=== PATIENT | male | born 1935 | race Caucasian/White ===

== ENCOUNTER 2017-02-20 13:10 | Inpatient (IN) ==
[2017-02-20] MEDS ORDERED: GLUCAGON 1 MG VIAL IM PRN (13:14)
[2017-02-20] MEDS ORDERED: ONDANSETRON 4 MG/2 ML VIAL IV PRN (13:14)
[2017-02-20] MEDS ORDERED: DEXTROSE 50% 25 GM/50 ML SYRINGE IV PRN (13:14)
[2017-02-20] MEDS ORDERED: ACETAMINOPHEN 325 MG TABLET PO PRN (13:14)
--- NOTE | 2017-02-20 13:38 | Family Practice History&Phys ---
Assessment and Plan (1) severe weakness and failure to thrive Status: Acute Assessment and plan: We'll admit and obtain additional studies. Patient has multiple risk factors and need to rule out underlying disease process. We'll hydrate and assess nutritional care (2) type 2 diabetes mellitus Status: Chronic Assessment and plan: We'll start on sliding scale and resume home diabetic medication (3) status post coronary bypass graft Status: Chronic Assessment and plan: Stable at present. We will obtain cardiology evaluation if needed (4) status post aortic valve replacement Status: Chronic Assessment and plan: Stable at present. (5) diabetic peripheral neuropathy Status: Chronic Assessment and plan: Pain moderately controlled on Neurontin and occasional Ultram (6) anxiety and depression Status: Acute Assessment and plan: We'll resume his Lexapro and start on antianxiety medication (7) hypertension Status: Chronic Assessment and plan: Stable on present medication (8) hyperlipidemia Status: Chronic Assessment and plan: Stable with present medication (9) Obstructive sleep apnea Status: Chronic Assessment and plan: Stable on present treatment plan (10) post repair of aortic stenosis Status: Chronic Assessment and plan: Stable at present History of Present Illness Chief complaint: progressive weakness and failure to thrive History of present illness: Mr. Mix is a 81 year old male Patient is an 81-year-old white male well known to me who has had a progressive decline over the last 2 weeks. Patient has no energy, no appetite, weight loss with intermittent dyspnea.Patient states she doesn't feel like he can carry out any activity. States he becomes extremely weak with even minimal activity. He was seen in the emergency room at [facility] on 02/18/2017. He was complaining of some burning type chest pain and severe weakness. They were unable to find any specific etiology and treat him more as a viral type illness. Family states that there is a total change in his outlook and level of activity over the last 7-10 days. Patient states that he is having intermittent episodes of dyspnea. The symptoms will last for several minutes and then resolve. Family states that he is not sleeping. Has difficulty getting to sleep with frequent awakening. States he feels exhausted. Patient relates that if something is not done and doesn't feel that he will make it. Has a history of coronary artery disease with previous coronary artery bypass graft and aortic valve replacement. He denies any chest pain or dyspnea at the time of my evaluation. Patient lives over an hour and a half away from the hospital. In view of his medical history and degree of symptoms will admit for close observation and therapy. Home Medications Medication Instructions Recorded Confirmed Type Aspirin [Ecotrin] 81 mg PO BEDTIME 07/16/15 06/05/16 History Gemfibrozil 600 mg PO BID 07/16/15 06/05/16 History Glimepiride [Amaryl] 4 mg PO BID W/MEALS 07/16/15 06/05/16 History Isosorbide Mononitrate [Isosorbide 30 mg PO DAILY 07/16/15 06/05/16 History Mononitrate ER] Metoprolol Tartrate 50 mg PO BID 07/16/15 06/05/16 History Minoxidil 5 mg PO BID 07/16/15 06/05/16 History Omeprazole 20 mg PO BEDTIME 07/16/15 06/05/16 History Pioglitazone [Actos] 15 mg PO DAILY 07/16/15 06/05/16 History amLODIPine [Norvasc] 10 mg PO BEDTIME 07/16/15 06/05/16 History cloNIDine TAB [Catapres Tab] 0.3 mg PO BID 07/16/15 06/05/16 History metFORMIN [Glucophage] 250 mg PO BID W/MEALS 07/16/15 06/05/16 History Furosemide Tab [Lasix Tab] 40 mg PO 0900,1400 10/24/15 06/05/16 History Spironolactone [Aldactone] 50 mg PO BID #60 tablet 10/28/15 06/05/16 Rx Meloxicam [Mobic] 15 mg PO DAILY 01/29/16 06/05/16 History Theophylline ER Cap (24 Hr) 300 mg PO DAILY #10 capsule 04/02/16 06/05/16 Rx [Miguel Angel-24] predniSONE TAB [PredniSONE] 20 mg PO DAILY #15 tablet 04/02/16 06/05/16 Rx Furosemide Tab [Lasix Tab] 20 mg PO BID DIURETIC #14 tablet 06/05/16 Rx Allergies Allergy/AdvReac Type Severity Reaction Status Date / Time Minocycline Allergy Severe RASH Verified 04/01/16 23:42 sulfamethoxazole Allergy Severe RASH Verified 04/01/16 23:42 [From Bactrim] trimethoprim [From Bactrim] Allergy Severe RASH Verified 04/01/16 23:42 celecoxib [From Celebrex] Allergy Mild ITCHING Verified 04/01/16 23:42 cefuroxime [From Ceftin] Allergy Unknown Unknown/Unable Verified 04/01/16 23:42 to obtain lisinopril Allergy Unknown Unknown/Unable Verified 04/01/16 23:42 to obtain SARITHA Inhibitors AdvReac Mild Swelling Verified 04/01/16 23:42 of Lip/Tongue/Throat amlodipine [From Lotrel] AdvReac Mild Swelling Verified 04/01/16 23:42 of Lip/Tongue/Throat benazepril [From Lotrel] AdvReac Mild Swelling Verified 04/01/16 23:42 of Lip/Tongue/Throat losartan [From Cozaar] AdvReac Mild Swelling Verified 04/01/16 23:42 of Lip/Tongue/Throat Medical,Surgical,& Family Hx - Medical History Cardio: History of: CHF, Hypertension, Valvular Heart Disease (aortic valve replacement), Cardiovascular Problems (CABG) Neurology: History of: Cerebral Hemorrhage (July 2012) No history of: Seizures HEENT: History of: Ear Problem (hearing aids), Eye Problem (glasses), Dental Problems (top and bottom partials) Endocrine: History of: Diabetes Mellitus (NIDDM), Dyslipidemia Respiratory: History of: Bronchitis (2014), Obstructive Sleep Apnea, Pneumonia ( april 2015) Gastrointestinal: History of: GERD Musculoskeletal: History of: Back/Neck Problems (back surgery years ago.) - Surgical History Cardiac Surgeries: Sugical HX of: Cardiac Catheterization (07-16-16, stents greater than 5 yrs), Cardiac Surgery (cabg 2003) Thoracic Surgeries: Patient denies;: Organ Transplant Neurologic Surgeries: Surgical HX of: Cerebral Hemorrhage (July 2012) Patient denies: Neurologic Surgery Orthopedic Surgeries: Surgical HX of;: Spinal Surgery (patient has had 2 lumbar disc surgeries in the past) - Family History Family History: Reports;: Family Diabetes (mother, brothers, sister), Family Heart Disease (mother, father, nrothers, sisters), Family Hypertension (mother , father, brothers, siter), Family Stroke (tia, brother) - Social History Smoking Status: Former smoker Have you smoked in the last 12 months: No Frequency of Alcohol Use: None Type of Drug Use: None Marital Status: Lives With:: Spouse Functional capacity: independent ambulation Exam - Constitutional General appearance: mild distress - Head Head exam: Present: normal inspection - Eye Pupils: Present: JIN - ENT ENT exam: Present: normal exam - Neck Neck exam: Present: normal inspection - Respiratory Respiratory exam: Present: clear to auscultation bilaterally - Cardiovascular Cardiovascular exam: Present: regular rate and rhythm, systolic murmur - GI/Abdominal GI/Abdominal exam: Present: normal bowel sounds, soft - Extremities Exam Extremities exam: Present: normal inspection - Back Exam Back exam: Present: normal inspection - Neurological Exam Neurological exam: Present: alert, oriented X3, normal gait - Psychiatric Psychiatric exam: Present: depressed, flat affect - Skin Skin exam: Present: normal color
[2017-02-20 14:45] LABS: Basophils % 0.5 % (0.0-0.8); Eosinophils % 0.3 % (0.00-10.9); Hematocrit 35.9 VOL% (42.0-52.0); Hemoglobin 12.3 GM/DL (14.0-18.0); Immature Granulocytes % 0.9 %; Immature Granulocytes Absolute 0.06 #; Lymphocytes # 0.9 10*3/uL (1.4-4.0); Lymphocytes % 13.5 % (21.2-54.2); Mean Corpuscular HGB Conc 34.3 GM/DL (32-36); Mean Corpuscular Hemoglobin 28 PG (27-34); Mean Corpuscular Volume 82.5 FL (87-102); Mean Platelet Volume 10.8 FL (9.6-12.0); Monocytes # 0.7 10*3/uL (0.11-0.8); Monocytes % 10.6 % (1.7-12.7); Neutrophils # 4.7 10*3/uL (1.4-7.4); Neutrophils % 74.2 % (38.7-73.9); Platelet Count 237 T/CUMM (130-400); Red Blood Count 4.35 MC/CUMM (3.8-5.5); White Blood Count 6.4 T/CUMM (4-12)
[2017-02-20 15:05] LABS: Albumin 4.1 G/DL (3.4-5.0); Bilirubin,Total 0.4 MG/DL (0.2-1.0); Calcium 9.4 MG/DL (8.5-10.1); Potassium 3.5 MMOL/L (3.5-5.1); Total Protein 7.6 G/DL (6.4-8.3)
[2017-02-20 15:08] LABS: Ferritin 18.5 ng/ml (26-388); Free T4 (Free Thyroxine) 1.3 NG/DL (0.76-1.46)
[2017-02-20] MEDS: SODIUM CHLORIDE 0.45% 1,000 ML IV SCH (15:14)
[2017-02-20] MEDS: clonazePAM 0.5 MG TABLET PO SCH ×2 (15:15→20:55)
[2017-02-20 15:57] LABS: Apearance,Urine CLEAR (Clear); Bilirubin,Urine Negative (Negative); Blood, Urine Negative (Negative); Glucose,Urine (UA) Negative (Negative); Ketones,Urine Negative (Negative); Nitrite,Urine Negative (Negative); Protein,Urine Negative; RBC,Urine 1 /HPF (0-4); Urine Color Straw (Yellow); Urine Specific Gravity 1.008 (1.001-1.035); Urine Urobilinogen < 2.0 EU/DL (0.2-1.0); WBC,Urine 2 /HPF (0-6)
[2017-02-20] MEDS: INSULIN REGULAR 100 UNIT/ML SUBCUT SCH ×2 (15:59→22:44)
--- NOTE | 2017-02-20 16:12 | EKG Report ---
Stationary ECG Study [facility] Test Date: 02/20/2017 4:11:48 PM Pat Name: EMILE PEREZ Department: Room: 242 Gender: M Brinell Tester: : 1935 Requested by: Adalberto Robledo Order Number: [id number] Reading MD: MANUELA NEGRETE Intervals Williams Rate: 55 P: 66 MD: 172 QRS: 69 QRSD: 98 T: 182 QT: 460 QTc: 448 Interpretive Statements SINUS RHYTHM ST DEVIATION AND MODERATE T-WAVE ABNORMALITY, CONSIDER ANTEROLATERAL ISCHEMIA Electronically Signed On 02-24-17 06:43:48 CDT by MANUELA NEGRETE [email or web address]
--- NOTE | 2017-02-20 16:26 | XRay Report ---
2 view chest 02/20/2017 257 PM Indication: Shortness of breath Comparison: June 05, 2016 Findings: Cardiomediastinal contours are stable with underlying cardiomegaly and evidence of prior valve replacement. Mediastinal wires at midline. Lungs are clear bilaterally. . No acute osseous abnormalities. Visualized upper abdomen demonstrates no acute pathology. Impression: No acute cardiopulmonary findings PROCEDURE INTERPRETED AT [facility] Final Report Signed by: Hu Nj
[2017-02-20] MEDS: metFORMIN 500 MG TABLET PO SCH (18:34)
[2017-02-20] MEDS: GLIMEPIRIDE 4 MG TABLET PO SCH (18:34)
[2017-02-20] MEDS: FUROSEMIDE 80 MG TABLET PO SCH (18:34)
[2017-02-20] MEDS: METOPROLOL TARTRATE 50 MG TABLET PO SCH (20:55)
[2017-02-20] MEDS: amLODIPine 10 MG TABLET PO SCH (20:55)
[2017-02-20] MEDS: MINOXIDIL 2.5 MG TABLET PO SCH (20:55)
[2017-02-20] MEDS: ENOXAPARIN 40 MG/0.4 ML SYRINGE SUBCUT SCH (20:55)
[2017-02-20] MEDS: ROSUVASTATIN 20 MG TABLET PO SCH (20:55)
[2017-02-20] MEDS: ASPIRIN EC 81 MG TABLET PO SCH (20:55)
[2017-02-20] MEDS: GEMFIBROZIL 600 MG TABLET PO SCH (20:55)
[2017-02-20] MEDS: ESCITALOPRAM 10 MG TABLET PO SCH (20:56)
[2017-02-20] MEDS: DOCUSATE SODIUM 100 MG CAPSULE PO SCH (21:01)
[2017-02-21] MEDS: SODIUM CHLORIDE 0.45% 1,000 ML IV SCH ×3 (00:09→23:09)
[2017-02-21 06:54] LABS: Calcium 8.6 MG/DL (8.5-10.1); Osmolality,Calculated 281.4 MOS/KG (273-304); Potassium 3.6 MMOL/L (3.5-5.1); Risk Ratio 2.58; VLDL CHOLESTEROL 22.8 MG/DL
--- NOTE | 2017-02-21 07:52 | Family Practice Progress Note ---
Family Practice - PN: Subj Interval history: 02/21/17 -patient states he feels some better this a.m. He developed nausea early this a.m. States she has been having nausea daily over the last week. Not related to any medication or food. Not associated with any pain. Grandsons states that it awoke him from his sleep early this a.m. and lasted for about 2 hours. Nausea was relieved with medication. Patient states she feels better at present. Patient is not certain is whether the nausea is only in a.m. or is been at other times during the day. Family will monitor this help me better define the etiology of his nausea. It is just at night is probably related to reflux or gastritis. Will modify his protein pump inhibitors elevate the head of his bed. If symptoms persist will obtain a GI consult. His lab studies are stable. Chest x-ray is stable. He actually looks stronger and more alert this a.m. I have encouraged family to have patient sit in chair and ambulate as much as possible. We will continue IV hydration and evaluation. This is possibly a anxiety depression type syndrome but is most likely multifactorial in nature. I am not doing any other cardiac or extensive workup since the patient is improving and studies have been stable. Hopefully will rapidly improve Exam (Progress Note) - Constitutional Vitals: Period Temp Pulse Resp BP Sys/Stack Pulse Ox Last 24 Hr 97.1 F-98.6 F 49-61 16-22 112-181/55-79 97-100 Results - Labs CBC & BMP: 02/20/17 14:29 02/21/17 06:00 Assessment and Plan (1) severe weakness and failure to thrive Status: Acute Assessment and plan: We'll admit and obtain additional studies. Patient has multiple risk factors and need to rule out underlying disease process. We'll hydrate and assess nutritional care Current Visit: Yes (2) type 2 diabetes mellitus Status: Chronic Assessment and plan: We'll start on sliding scale and resume home diabetic medication Current Visit: Yes (3) status post coronary bypass graft Status: Chronic Assessment and plan: Stable at present. We will obtain cardiology evaluation if needed Current Visit: Yes (4) status post aortic valve replacement Status: Chronic Assessment and plan: Stable at present. Current Visit: Yes (5) diabetic peripheral neuropathy Status: Chronic Assessment and plan: Pain moderately controlled on Neurontin and occasional Ultram Current Visit: Yes (6) anxiety and depression Status: Acute Assessment and plan: We'll resume his Lexapro and start on antianxiety medication Current Visit: Yes (7) hypertension Status: Chronic Assessment and plan: Stable on present medication Current Visit: Yes (8) hyperlipidemia Status: Chronic Assessment and plan: Stable with present medication Current Visit: Yes (9) Obstructive sleep apnea Status: Chronic Assessment and plan: Stable on present treatment plan Current Visit: No (10) post repair of aortic stenosis Status: Chronic Assessment and plan: Stable at present Current Visit: No
[2017-02-21] MEDS: GEMFIBROZIL 600 MG TABLET PO SCH ×2 (08:46→20:36)
[2017-02-21] MEDS: ISOSORBIDE MONONITRATE 30 MG TABLET PO SCH (08:46)
[2017-02-21] MEDS: FUROSEMIDE 80 MG TABLET PO SCH ×2 (08:49→16:30)
[2017-02-21] MEDS: GLIMEPIRIDE 4 MG TABLET PO SCH ×2 (08:50→17:02)
[2017-02-21] MEDS: PIOGLITAZONE 15 MG TABLET PO SCH (08:50)
[2017-02-21] MEDS: clonazePAM 0.5 MG TABLET PO SCH ×3 (08:50→20:36)
[2017-02-21] MEDS: POTASSIUM CHLORIDE 10 MEQ TABLET PO SCH (08:50)
[2017-02-21] MEDS: PANTOPRAZOLE 40 MG TABLET PO SCH ×2 (08:51→20:36)
[2017-02-21] MEDS: metFORMIN 500 MG TABLET PO SCH ×2 (08:51→17:02)
[2017-02-21] MEDS: DOCUSATE SODIUM 100 MG CAPSULE PO SCH ×2 (08:52→20:36)
[2017-02-21] MEDS: METOPROLOL TARTRATE 50 MG TABLET PO SCH ×2 (08:52→20:38)
[2017-02-21] MEDS: MINOXIDIL 2.5 MG TABLET PO SCH ×2 (08:52→20:35)
[2017-02-21] MEDS: INSULIN REGULAR 100 UNIT/ML SUBCUT SCH ×4 (08:53→20:38)
[2017-02-21] MEDS ORDERED: ESCITALOPRAM 10 MG TABLET PO SCH (09:00)
[2017-02-21] MEDS ORDERED: PANTOPRAZOLE 40 MG TABLET PO SCH (09:00)
[2017-02-21] MEDS: ROSUVASTATIN 20 MG TABLET PO SCH (20:35)
[2017-02-21] MEDS: ENOXAPARIN 40 MG/0.4 ML SYRINGE SUBCUT SCH (20:36)
[2017-02-21] MEDS: ASPIRIN EC 81 MG TABLET PO SCH (20:36)
[2017-02-21] MEDS: ESCITALOPRAM 10 MG TABLET PO SCH (20:36)
[2017-02-21] MEDS: amLODIPine 10 MG TABLET PO SCH (20:36)
[2017-02-22 06:09] LABS: Basophils % 0.5 % (0.0-0.8); Eosinophils # 0.2 10*3/uL (0.0-0.87); Eosinophils % 2.6 % (0.00-10.9); Hematocrit 32.5 VOL% (42.0-52.0); Hemoglobin 10.9 GM/DL (14.0-18.0); Immature Granulocytes % 1.1 %; Immature Granulocytes Absolute 0.07 #; Lymphocytes # 1.2 10*3/uL (1.4-4.0); Lymphocytes % 18.1 % (21.2-54.2); Mean Corpuscular HGB Conc 33.5 GM/DL (32-36); Mean Corpuscular Hemoglobin 28 PG (27-34); Mean Corpuscular Volume 83.5 FL (87-102); Mean Platelet Volume 10.8 FL (9.6-12.0); Monocytes # 0.9 10*3/uL (0.11-0.8); Monocytes % 13.1 % (1.7-12.7); Neutrophils # 4.2 10*3/uL (1.4-7.4); Neutrophils % 64.6 % (38.7-73.9); Platelet Count 209 T/CUMM (130-400); Red Blood Count 3.89 MC/CUMM (3.8-5.5); Red Cell Distribution Width 14.1 % (9.3-17.3); White Blood Count 6.6 T/CUMM (4-12)
[2017-02-22 06:34] LABS: Magnesium 2.3 MG/DL (1.8-2.4); Osmolality,Calculated 286.3 MOS/KG (273-304); Potassium 3.7 MMOL/L (3.5-5.1)
[2017-02-22 07:34] LABS: Sedimentation Rate-Westergren 55 MM/HR (0-20)
--- NOTE | 2017-02-22 08:20 | Family Practice Progress Note ---
Family Practice - PN: Subj Interval history: 02/21/17 -patient states he feels some better this a.m. He developed nausea early this a.m. States she has been having nausea daily over the last week. Not related to any medication or food. Not associated with any pain. Grandsons states that it awoke him from his sleep early this a.m. and lasted for about 2 hours. Nausea was relieved with medication. Patient states she feels better at present. Patient is not certain is whether the nausea is only in a.m. or is been at other times during the day. Family will monitor this help me better define the etiology of his nausea. It is just at night is probably related to reflux or gastritis. Will modify his protein pump inhibitors elevate the head of his bed. If symptoms persist will obtain a GI consult. His lab studies are stable. Chest x-ray is stable. He actually looks stronger and more alert this a.m. I have encouraged family to have patient sit in chair and ambulate as much as possible. We will continue IV hydration and evaluation. This is possibly a anxiety depression type syndrome but is most likely multifactorial in nature. I am not doing any other cardiac or extensive workup since the patient is improving and studies have been stable. Hopefully will rapidly improve 02/22/17 -patient rested well during the night. He has not had any further nausea. Daughter states that he was much improved last p.m. He ambulated in the room and sat up most of the afternoon. She feels appetite has improved. Reviewed lab and x-ray studies. Will have patient get up and ambulate. If improved will consider discharge later today Exam (Progress Note) - Constitutional Vitals: Period Temp Pulse Resp BP Sys/Stack Pulse Ox Last 24 Hr 97.2 F-98.3 F 53-92 18-26 113-136/52-72 93-98 Results - Labs CBC & BMP: 02/22/17 05:22 02/22/17 05:22 Assessment and Plan (1) severe weakness and failure to thrive Status: Acute Assessment and plan: We'll admit and obtain additional studies. Patient has multiple risk factors and need to rule out underlying disease process. We'll hydrate and assess nutritional care Current Visit: Yes (2) type 2 diabetes mellitus Status: Chronic Assessment and plan: We'll start on sliding scale and resume home diabetic medication Current Visit: Yes (3) status post coronary bypass graft Status: Chronic Assessment and plan: Stable at present. We will obtain cardiology evaluation if needed Current Visit: Yes (4) status post aortic valve replacement Status: Chronic Assessment and plan: Stable at present. Current Visit: Yes (5) diabetic peripheral neuropathy Status: Chronic Assessment and plan: Pain moderately controlled on Neurontin and occasional Ultram Current Visit: Yes (6) anxiety and depression Status: Acute Assessment and plan: We'll resume his Lexapro and start on antianxiety medication Current Visit: Yes (7) hypertension Status: Chronic Assessment and plan: Stable on present medication Current Visit: Yes (8) hyperlipidemia Status: Chronic Assessment and plan: Stable with present medication Current Visit: Yes (9) Obstructive sleep apnea Status: Chronic Assessment and plan: Stable on present treatment plan Current Visit: No (10) post repair of aortic stenosis Status: Chronic Assessment and plan: Stable at present Current Visit: No
[2017-02-22] MEDS: GLIMEPIRIDE 4 MG TABLET PO SCH (08:29)
[2017-02-22 08:30] VITALS: BP 141/72
[2017-02-22] MEDS: metFORMIN 500 MG TABLET PO SCH (08:30)
[2017-02-22] MEDS: FUROSEMIDE 80 MG TABLET PO SCH (08:31)
[2017-02-22] MEDS: ISOSORBIDE MONONITRATE 30 MG TABLET PO SCH (08:32)
[2017-02-22] MEDS: PIOGLITAZONE 15 MG TABLET PO SCH (08:32)
[2017-02-22] MEDS: DOCUSATE SODIUM 100 MG CAPSULE PO SCH (08:32)
[2017-02-22] MEDS: GEMFIBROZIL 600 MG TABLET PO SCH (08:33)
[2017-02-22] MEDS: clonazePAM 0.5 MG TABLET PO SCH (08:33)
[2017-02-22] MEDS: POTASSIUM CHLORIDE 10 MEQ TABLET PO SCH (08:33)
[2017-02-22] MEDS: MINOXIDIL 2.5 MG TABLET PO SCH (08:33)
[2017-02-22] MEDS: PANTOPRAZOLE 40 MG TABLET PO SCH (08:34)
[2017-02-22] MEDS: METOPROLOL TARTRATE 50 MG TABLET PO SCH (08:34)
[2017-02-22] MEDS: INSULIN REGULAR 100 UNIT/ML SUBCUT SCH (08:40)
[2017-02-22] MEDS ORDERED: FERROUS SULFATE 325 MG TABLET PO SCH (09:00)
--- NOTE | 2017-02-22 09:56 | Discharge Summary ---
Hospital Course - Hospital Course Hospital Course: History of present illness: Mr. Mix is a 81 year old male Patient is an 81-year-old white male well known to me who has had a progressive decline over the last 2 weeks. Patient has no energy, no appetite, weight loss with intermittent dyspnea.Patient states she doesn't feel like he can carry out any activity. States he becomes extremely weak with even minimal activity. He was seen in the emergency room at [facility] on 02/18/2017. He was complaining of some burning type chest pain and severe weakness. They were unable to find any specific etiology and treat him more as a viral type illness. Family states that there is a total change in his outlook and level of activity over the last 7-10 days. Patient states that he is having intermittent episodes of dyspnea. The symptoms will last for several minutes and then resolve. Family states that he is not sleeping. Has difficulty getting to sleep with frequent awakening. States he feels exhausted. Patient relates that if something is not done and doesn't feel that he will make it. Has a history of coronary artery disease with previous coronary artery bypass graft and aortic valve replacement. He denies any chest pain or dyspnea at the time of my evaluation. Patient lives over an hour and a half away from the hospital. In view of his medical history and degree of symptoms will admit for close observation and therapy. hospital course -patient was admitted to hospital lab and x-ray studies obtained. Patient was very anxious and family states that he had minimal solid or liquid intake prior to admission. He was hydrated well and started on appropriate medications. His lab and x-ray studies were stable. Patient showed a dramatic improvement with medications and treatment plan. He was generally much improved at time of discharge . His appetite had improved and he was ambulating without assistance. Will discharge patient to home care will continue present medications and arrange follow-up in the clinic. Will have patient call or return to the emergency room if condition worsens or new problems develop Diagnosis - Discharge Diagnosis (1) severe weakness and failure to thrive Status: Acute (2) type 2 diabetes mellitus Status: Chronic (3) status post coronary bypass graft Status: Chronic (4) status post aortic valve replacement Status: Chronic (5) diabetic peripheral neuropathy Status: Chronic (6) anxiety and depression Status: Acute (7) hypertension Status: Chronic (8) hyperlipidemia Status: Chronic (9) Obstructive sleep apnea Status: Chronic (10) post repair of aortic stenosis Status: Chronic Specialty Discharge - Follow Up or Referrals Follow up with: Adalberto Robledo DO [Primary Care Provider] - 03/08/17 10:30 am Discharge Plan - Discharge Data Disposition: Disch To Home/Self Care Condition at Discharge: Stable Discharge Diet: diabetic diet Activity: resume usual activities as tolerated Hygiene: no restrictions Weight Bearing at Discharge: weight bear as tolerated Contact your physician if you experience:: fever over 101, Nausea/Vomiting, Shortness of breath - Discharge Medications New clonazePAM TAB [KlonoPIN] 0.5 mg PO TID #60 tablet Ferrous Sulfate Tab [Feosol Original Tab] 325 mg PO BID #60 tablet Continue Minoxidil 5 mg PO BID Gemfibrozil 600 mg PO BID metFORMIN [Glucophage] 750 mg PO BID W/MEALS Isosorbide Mononitrate [Isosorbide Mononitrate ER] 30 mg PO DAILY Pioglitazone [Actos] 15 mg PO DAILY Glimepiride [Amaryl] 4 mg PO BID W/MEALS amLODIPine [Norvasc] 10 mg PO BEDTIME Omeprazole 20 mg PO BEDTIME cloNIDine TAB [Catapres Tab] 0.3 mg PO BID Metoprolol Tartrate 50 mg PO BID Aspirin [Ecotrin] 81 mg PO BEDTIME Rosuvastatin [Crestor] 20 mg PO BEDTIME Potassium Chloride 10 meq PO DAILY Escitalopram Oxalate 10 mg PO DAILY Furosemide Tab [Lasix Tab] 80 mg PO BID DIURETIC - Follow Up or Referral Follow Up: Adalberto Robledo DO [Primary Care Provider] - 03/08/17 10:30 am - Forms/Instructions Instructions: Iron Supplements (By mouth), Clonazepam (By mouth) Additional Discharge Instructions: Call in Clonopin to pharmacy of choice Exam - Constitutional Vitals: Period Temp Pulse Resp BP Sys/Stack Pulse Ox Last 24 Hr 97.2 F-98.3 F 53-59 18-26 113-141/52-72 93-98 General appearance: no acute distress - Head Head exam: Present: normal inspection - Eye Pupils: Present: JIN - ENT ENT exam: Present: normal exam - Neck Neck exam: Present: normal inspection - Respiratory Respiratory exam: Present: clear to auscultation bilaterally - Cardiovascular Cardiovascular exam: Present: irregular rhythm - GI/Abdominal GI/Abdominal exam: Present: normal bowel sounds, soft - Extremities Exam Extremities exam: Present: full ROM, edema - Back Exam Back exam: Present: normal inspection - Neurological Exam Neurological exam: Present: alert, oriented X3 - Psychiatric Psychiatric exam: Present: normal affect - Skin Skin exam: Present: normal color Discharge Results Procedures and tests throughout hospitalization: Pending Orders 02/23/17 04:00 Basic Metabolic Panel IN AM Comp Blood Count Auto Diff IN AM Labs on day of discharge: Labs from last 24 hours 02/22/17 02/22/17 02/22/17 07:29 05:22 05:22 WBC RBC Hgb Hct MCV MCH MCHC RDW Plt Count MPV Neut % (Auto) Lymph % (Auto) [place] % (Auto) Eos % (Auto) Baso % (Auto) Neut # (Auto) Lymph # (Auto) [place] # (Auto) Eos # (Auto) Baso # (Auto) Immature Gran % Nucleated RBC % Immature Gran # Nucleated RBCs # Immature Plt Fraction ESR [place] Sodium 141 Potassium 3.7 Chloride 105 Carbon Dioxide 29 Anion Gap 10.7 BUN 20 H Creatinine 1.40 H GFR Calculation 54 BUN/Creatinine Ratio 14.00 Glucose 148 H POC Glucose 153 H Calculated Osmolality 286.3 Calcium 9.0 Magnesium 2.3 Lipase 126.0 02/22/17 02/21/17 02/21/17 05:22 19:27 15:25 WBC 6.6 RBC 3.89 Hgb 10.9 L Hct 32.5 L MCV 83.5 L MCH 28 MCHC 33.5 RDW 14.1 Plt Count 209 MPV 10.8 Neut % (Auto) 64.6 Lymph % (Auto) 18.1 L [place] % (Auto) 13.1 H Eos % (Auto) 2.6 Baso % (Auto) 0.5 Neut # (Auto) 4.2 Lymph # (Auto) 1.2 L [place] # (Auto) 0.9 H Eos # (Auto) 0.2 Baso # (Auto) 0.0 Immature Gran % 1.1 Nucleated RBC % 0.0 Immature Gran # 0.07 Nucleated RBCs # 0.00 Immature Plt Fraction 0.0 ESR W[place]gren 55 H Sodium Potassium Chloride Carbon Dioxide Anion Gap BUN Creatinine GFR Calculation BUN/Creatinine Ratio Glucose POC Glucose 184 H 173 H Calculated Osmolality Calcium Magnesium Lipase 02/21/17 11:18 WBC RBC Hgb Hct MCV MCH MCHC RDW Plt Count MPV Neut % (Auto) Lymph % (Auto) [place] % (Auto) Eos % (Auto) Baso % (Auto) Neut # (Auto) Lymph # (Auto) [place] # (Auto) Eos # (Auto) Baso # (Auto) Immature Gran % Nucleated RBC % Immature Gran # Nucleated RBCs # Immature Plt Fraction ESR [place] Sodium Potassium Chloride Carbon Dioxide Anion Gap BUN Creatinine GFR Calculation BUN/Creatinine Ratio Glucose POC Glucose 231 H Calculated Osmolality Calcium Magnesium Lipase DS: Provider Date of admission: 02/20/17 13:14 Primary care physician: Adalberto Robledo DO Attending physician on admission: Adalberto Robledo DO Consults: 02/20/17 14:21 Consult to Dietitian [CONS] Routine Reason for Dietitian: Dietary Consult Discharging clinician: Adalberto Robledo DO
[2017-02-22] MEDS: SODIUM CHLORIDE 0.45% 1,000 ML IV SCH (10:56)
== END 2017-02-22 10:54 | disposition home or self-care (01) | DRG 641 ==
LOC: N.2E 13:44
PROVIDERS: ADMIT Family Medicine; ATTEND Family Medicine

== ENCOUNTER 2020-10-09 12:18 | Inpatient (IN) ==
[2020-10-09] MEDS ORDERED: FUROSEMIDE 40 MG/4 ML VIAL ONE (12:46)
[2020-10-09 12:58] LABS: Basophils % 0.3 % (0.0-0.8); Eosinophils # 0.1 10*3/uL (0.0-0.87); Hematocrit 33.1 VOL% (42.0-52.0); Hemoglobin 10.2 GM/DL (14.0-18.0); Immature Granulocytes % 1.6 %; Immature Granulocytes Absolute 0.09 #; Lymphocytes # 0.8 10*3/uL (1.4-4.0); Lymphocytes % 14.1 % (21.2-54.2); Mean Corpuscular HGB Conc 30.8 GM/DL (32-36); Mean Corpuscular Volume 84.7 FL (87-102); Monocytes % 16.7 % (1.7-12.7); Neutrophils % 66.3 % (38.7-73.9); Platelet Count 239 T/CUMM (130-400); Red Blood Count 3.91 MC/CUMM (3.8-5.5); Red Cell Distribution Width 14.7 % (9.3-17.3); White Blood Count 5.7 T/CUMM (4-12)
[2020-10-09 13:11] LABS: PT Patient Result 11.6 SECS (10.5-12.0)
[2020-10-09] MEDS ORDERED: ALBUTEROL 2.5 MG/3 ML NEB RESP TX STA (13:26)
[2020-10-09 13:33] LABS: Alanine Aminotransferase 17 U/L (16-61); Albumin 3.8 G/DL (3.4-5.0); Alkaline Phosphatase 80 U/L (45-117); Aspartate Amino Transferase 20 U/L (0-37); Bilirubin,Total < 0.39 MG/DL (0.2-1.0); Blood Urea Nitrogen 36 MG/DL (7-18); Calcium 9.1 MG/DL (8.5-10.1); Carbon Dioxide 29 MMOL/L (21-32); Estimated Glom Filtration Rate 39 ML/MIN; Glucose 167 MG/DL (74-106); Osmolality,Calculated 284.8 MOS/KG (273-304); Potassium 4.1 MMOL/L (3.5-5.1); Sodium 137 MMOL/L (136-145); Total Protein 7.8 G/DL (6.4-8.2)
[2020-10-09] MEDS ORDERED: FUROSEMIDE 40 MG/4 ML VIAL IV STA (13:42)
[2020-10-09] MEDS ORDERED: methylPREDNISolone SOD SUC 40 MG/1 ML VIAL IV STA (13:55)
[2020-10-09] MEDS ORDERED: ONDANSETRON 4 MG/2 ML VIAL IV PRN (13:56)
[2020-10-09] MEDS ORDERED: ACETAMINOPHEN 325 MG TABLET PO PRN (13:56)
[2020-10-09] MEDS ORDERED: ALBUTEROL 2.5 MG/3 ML NEB RESP TX SCH (14:00)
[2020-10-09] MEDS: methylPREDNISolone SOD SUC 40 MG/1 ML VIAL IV SCH ×2 (16:37→22:07)
[2020-10-09] MEDS: metFORMIN 500 MG TABLET PO SCH (17:17)
[2020-10-09] MEDS: GLIMEPIRIDE 4 MG TABLET PO SCH (17:17)
[2020-10-09] MEDS: ALBUTEROL 2.5 MG/3 ML NEB RESP TX SCH (19:26)
[2020-10-09] MEDS: BUDESONIDE 0.25 MG/2 ML NEB RESP TX SCH (20:43)
[2020-10-09] MEDS: ASPIRIN EC 81 MG TABLET PO SCH (22:07)
[2020-10-09] MEDS: gemfibroziL 600 MG TABLET PO SCH (22:07)
[2020-10-09] MEDS: AZITHROMYCIN INJ 500 MG in SODIUM CHLORIDE 0.9% 250 ML IV SCH (22:08)
[2020-10-09] MEDS: DOCUSATE SODIUM 100 MG CAPSULE PO SCH (22:08)
[2020-10-09] MEDS: METOPROLOL TARTRATE 50 MG TABLET PO SCH (22:08)
[2020-10-09] MEDS: amLODIPine 10 MG TABLET PO SCH (22:08)
[2020-10-09] MEDS ORDERED: GLUCAGON 1 MG VIAL IM PRN (22:41)
[2020-10-09] MEDS ORDERED: DEXTROSE 50% 25 GM/50 ML VIAL IV PRN (22:41)
[2020-10-10] MEDS: ALBUTEROL 2.5 MG/3 ML NEB RESP TX SCH ×6 (00:43→23:40)
[2020-10-10 05:42] LABS: Basophils % 0.3 % (0.0-0.8); Hematocrit 32.1 VOL% (42.0-52.0); Hemoglobin 9.8 GM/DL (14.0-18.0); Immature Granulocytes Absolute 0.08 #; Lymphocytes # 0.7 10*3/uL (1.4-4.0); Lymphocytes % 16.8 % (21.2-54.2); Mean Corpuscular HGB Conc 30.5 GM/DL (32-36); Mean Corpuscular Volume 84.7 FL (87-102); Mean Platelet Volume 11.1 FL (9.6-12.0); Monocytes % 2.6 % (1.7-12.7); Neutrophils % 78.3 % (38.7-73.9); Platelet Count 240 T/CUMM (130-400); Red Blood Count 3.79 MC/CUMM (3.8-5.5); Red Cell Distribution Width 14.6 % (9.3-17.3); White Blood Count 3.9 T/CUMM (4-12)
[2020-10-10] MEDS: methylPREDNISolone SOD SUC 40 MG/1 ML VIAL IV SCH ×3 (05:49→21:50)
[2020-10-10 06:20] LABS: Alanine Aminotransferase 17 U/L (16-61); Albumin 3.7 G/DL (3.4-5.0); Alkaline Phosphatase 77 U/L (45-117); Aspartate Amino Transferase 17 U/L (0-37); Bilirubin,Total < 0.39 MG/DL (0.2-1.0); Blood Urea Nitrogen 44 MG/DL (7-18); Calcium 9.4 MG/DL (8.5-10.1); Carbon Dioxide 24 MMOL/L (21-32); Estimated Glom Filtration Rate 39 ML/MIN; Glucose 250 MG/DL (74-106); Osmolality,Calculated 293.7 MOS/KG (273-304); Sodium 138 MMOL/L (136-145); Total Protein 7.3 G/DL (6.4-8.2)
[2020-10-10] MEDS: BUDESONIDE 0.25 MG/2 ML NEB RESP TX SCH ×2 (06:57→18:49)
[2020-10-10 07:15] LABS: Elliptocytes Few; Hypochromasia 2+; Platelet Estimate Normal
[2020-10-10] MEDS ORDERED: FUROSEMIDE 40 MG/4 ML VIAL IV SCH (09:00)
[2020-10-10] MEDS: DOCUSATE SODIUM 100 MG CAPSULE PO SCH ×2 (10:23→21:51)
[2020-10-10] MEDS: GLIMEPIRIDE 4 MG TABLET PO SCH ×2 (10:23→17:23)
[2020-10-10] MEDS: metFORMIN 500 MG TABLET PO SCH ×2 (10:23→17:23)
[2020-10-10] MEDS: ISOSORBIDE MONONITRATE 30 MG TABLET PO SCH (10:23)
[2020-10-10] MEDS: METOPROLOL TARTRATE 50 MG TABLET PO SCH ×2 (10:24→21:51)
[2020-10-10] MEDS: ESCITALOPRAM 10 MG TABLET PO SCH (10:24)
[2020-10-10] MEDS: gemfibroziL 600 MG TABLET PO SCH ×2 (10:24→21:51)
[2020-10-10] MEDS: PANTOPRAZOLE 40 MG TABLET PO SCH (10:24)
[2020-10-10] MEDS: INSULIN REGULAR 100 UNIT/ML SUBCUT SCH ×4 (11:47→21:53)
[2020-10-10 12:46] LABS: Basophils % 0.1 % (0.0-0.8); Hematocrit 31.3 VOL% (42.0-52.0); Hemoglobin 9.8 GM/DL (14.0-18.0); Immature Granulocytes % 1.6 %; Immature Granulocytes Absolute 0.11 #; Lymphocytes # 0.5 10*3/uL (1.4-4.0); Lymphocytes % 7.7 % (21.2-54.2); Mean Corpuscular HGB Conc 31.3 GM/DL (32-36); Mean Corpuscular Volume 84.6 FL (87-102); Mean Platelet Volume 10.3 FL (9.6-12.0); Monocytes % 3.5 % (1.7-12.7); Neutrophils % 87.1 % (38.7-73.9); Platelet Count 263 T/CUMM (130-400); Red Cell Distribution Width 14.6 % (9.3-17.3)
[2020-10-10 12:48] LABS: White Blood Count 7.1 T/CUMM (4-12)
[2020-10-10 13:09] LABS: % Iron Saturation 11.9 % (18-50); Ferritin 46.8 ng/ml (26-388)
[2020-10-10 13:36] LABS: Folate 16.35 NG/ML (5.38-24.0)
[2020-10-10] MEDS: FERROUS SULFATE 325 MG TABLET PO SCH (13:39)
[2020-10-10] MEDS: FUROSEMIDE 40 MG/4 ML VIAL IV SCH (16:00)
[2020-10-10] MEDS: AZITHROMYCIN INJ 500 MG in SODIUM CHLORIDE 0.9% 250 ML IV SCH (21:49)
[2020-10-10] MEDS: amLODIPine 10 MG TABLET PO SCH (21:50)
[2020-10-10] MEDS: ASPIRIN EC 81 MG TABLET PO SCH (21:50)
[2020-10-10] MEDS: traZODone 50 MG TABLET PO PRN (21:51)
[2020-10-11] MEDS: ALBUTEROL 2.5 MG/3 ML NEB RESP TX SCH ×5 (03:55→19:03)
[2020-10-11] MEDS: methylPREDNISolone SOD SUC 40 MG/1 ML VIAL IV SCH ×3 (06:05→22:37)
[2020-10-11 06:26] LABS: Basophils % 0.1 % (0.0-0.8); Hemoglobin 9.2 GM/DL (14.0-18.0); Immature Granulocytes % 1.5 %; Immature Granulocytes Absolute 0.14 #; Lymphocytes # 0.5 10*3/uL (1.4-4.0); Lymphocytes % 5.7 % (21.2-54.2); Mean Corpuscular HGB Conc 30.7 GM/DL (32-36); Mean Platelet Volume 10.9 FL (9.6-12.0); Monocytes % 3.4 % (1.7-12.7); Neutrophils % 89.3 % (38.7-73.9); Platelet Count 267 T/CUMM (130-400); Red Blood Count 3.53 MC/CUMM (3.8-5.5); Red Cell Distribution Width 14.6 % (9.3-17.3); White Blood Count 9.5 T/CUMM (4-12)
[2020-10-11 06:47] LABS: Calcium 9.5 MG/DL (8.5-10.1); Osmolality,Calculated 304.4 MOS/KG (273-304); Potassium 3.3 MMOL/L (3.5-5.1)
[2020-10-11] MEDS: BUDESONIDE 0.25 MG/2 ML NEB RESP TX SCH ×2 (07:24→19:03)
[2020-10-11] MEDS ORDERED: POTASSIUM CHLORIDE 20 MEQ TABLET PO ONE ×2 (07:33→21:19)
[2020-10-11] MEDS: ISOSORBIDE MONONITRATE 30 MG TABLET PO SCH (08:36)
[2020-10-11] MEDS: FUROSEMIDE 40 MG/4 ML VIAL IV SCH ×2 (08:36→16:33)
[2020-10-11] MEDS: gemfibroziL 600 MG TABLET PO SCH ×2 (08:37→22:36)
[2020-10-11] MEDS: INSULIN REGULAR 100 UNIT/ML SUBCUT SCH ×4 (08:37→22:43)
[2020-10-11] MEDS: DOCUSATE SODIUM 100 MG CAPSULE PO SCH ×2 (08:38→22:36)
[2020-10-11] MEDS: ESCITALOPRAM 10 MG TABLET PO SCH (08:38)
[2020-10-11] MEDS: FERROUS SULFATE 325 MG TABLET PO SCH (08:38)
[2020-10-11] MEDS: metFORMIN 500 MG TABLET PO SCH ×2 (08:38→16:34)
[2020-10-11] MEDS: METOPROLOL TARTRATE 50 MG TABLET PO SCH ×2 (08:38→22:36)
[2020-10-11] MEDS: PANTOPRAZOLE 40 MG TABLET PO SCH (08:38)
[2020-10-11] MEDS: GLIMEPIRIDE 4 MG TABLET PO SCH ×2 (08:38→16:34)
[2020-10-11] MEDS: ASPIRIN EC 81 MG TABLET PO SCH (22:35)
[2020-10-11] MEDS: amLODIPine 10 MG TABLET PO SCH (22:36)
[2020-10-11] MEDS: AZITHROMYCIN INJ 500 MG in SODIUM CHLORIDE 0.9% 250 ML IV SCH (22:38)
[2020-10-11] MEDS: traZODone 50 MG TABLET PO PRN (22:49)
[2020-10-12] MEDS: ALBUTEROL 2.5 MG/3 ML NEB RESP TX SCH ×8 (00:55→23:58)
[2020-10-12 05:25] LABS: Basophils % 0.1 % (0.0-0.8); Hematocrit 29.5 VOL% (42.0-52.0); Immature Granulocytes % 2.5 %; Immature Granulocytes Absolute 0.24 #; Lymphocytes # 0.5 10*3/uL (1.4-4.0); Lymphocytes % 4.7 % (21.2-54.2); Mean Corpuscular HGB Conc 30.5 GM/DL (32-36); Mean Platelet Volume 10.9 FL (9.6-12.0); Monocytes % 3.5 % (1.7-12.7); Neutrophils % 89.2 % (38.7-73.9); Platelet Count 281 T/CUMM (130-400); Red Blood Count 3.51 MC/CUMM (3.8-5.5); Red Cell Distribution Width 14.9 % (9.3-17.3); White Blood Count 9.7 T/CUMM (4-12)
[2020-10-12 05:51] LABS: Calcium 9.1 MG/DL (8.5-10.1); Osmolality,Calculated 302.3 MOS/KG (273-304); Potassium 3.8 MMOL/L (3.5-5.1)
[2020-10-12 05:56] LABS: Hypochromasia 1+; Lymphocytes 6 % (20-55); Microcytosis 1+; Platelet Estimate Adequate; Segmented Neutrophils 90 % (50-85); Total Cells Counted 100
[2020-10-12] MEDS: methylPREDNISolone SOD SUC 40 MG/1 ML VIAL IV SCH ×2 (06:14→14:18)
[2020-10-12] MEDS: BUDESONIDE 0.25 MG/2 ML NEB RESP TX SCH ×2 (06:57→19:20)
[2020-10-12] MEDS: DOCUSATE SODIUM 100 MG CAPSULE PO SCH ×2 (09:10→21:22)
[2020-10-12] MEDS: PANTOPRAZOLE 40 MG TABLET PO SCH (09:10)
[2020-10-12] MEDS: metFORMIN 500 MG TABLET PO SCH ×2 (09:10→16:37)
[2020-10-12] MEDS: ESCITALOPRAM 10 MG TABLET PO SCH (09:10)
[2020-10-12] MEDS: gemfibroziL 600 MG TABLET PO SCH ×2 (09:10→21:23)
[2020-10-12] MEDS: ISOSORBIDE MONONITRATE 30 MG TABLET PO SCH (09:10)
[2020-10-12] MEDS: METOPROLOL TARTRATE 50 MG TABLET PO SCH ×2 (09:10→21:23)
[2020-10-12] MEDS: FERROUS SULFATE 325 MG TABLET PO SCH ×2 (09:10→21:23)
[2020-10-12] MEDS: GLIMEPIRIDE 4 MG TABLET PO SCH ×2 (09:11→16:37)
[2020-10-12] MEDS: POTASSIUM CHLORIDE 20 MEQ TABLET PO SCH (09:11)
[2020-10-12] MEDS: INSULIN REGULAR 100 UNIT/ML SUBCUT SCH ×4 (09:15→21:19)
[2020-10-12] MEDS: FUROSEMIDE 40 MG/4 ML VIAL IV SCH ×2 (09:20→16:43)
[2020-10-12] MEDS: AZITHROMYCIN INJ 500 MG in SODIUM CHLORIDE 0.9% 250 ML IV SCH (21:20)
[2020-10-12] MEDS: ASPIRIN EC 81 MG TABLET PO SCH (21:22)
[2020-10-12] MEDS: traZODone 50 MG TABLET PO PRN (21:22)
[2020-10-12] MEDS: ROSUVASTATIN 20 MG TABLET PO SCH (21:22)
[2020-10-12] MEDS: amLODIPine 10 MG TABLET PO SCH (21:23)
[2020-10-13] MEDS: methylPREDNISolone SOD SUC 40 MG/1 ML VIAL IV SCH ×2 (02:34→14:28)
[2020-10-13] MEDS: ALBUTEROL 2.5 MG/3 ML NEB RESP TX SCH ×5 (03:10→20:35)
[2020-10-13 05:12] LABS: Basophils % 0.2 % (0.0-0.8); Hematocrit 28.6 VOL% (42.0-52.0); Hemoglobin 9.1 GM/DL (14.0-18.0); Immature Granulocytes % 5.9 %; Immature Granulocytes Absolute 0.67 #; Lymphocytes # 0.9 10*3/uL (1.4-4.0); Lymphocytes % 7.8 % (21.2-54.2); Mean Corpuscular HGB Conc 31.8 GM/DL (32-36); Mean Corpuscular Volume 82.7 FL (87-102); Mean Platelet Volume 10.8 FL (9.6-12.0); Monocytes % 8.6 % (1.7-12.7); Neutrophils % 77.5 % (38.7-73.9); Platelet Count 274 T/CUMM (130-400); Red Blood Count 3.46 MC/CUMM (3.8-5.5); Red Cell Distribution Width 14.8 % (9.3-17.3); White Blood Count 11.4 T/CUMM (4-12)
[2020-10-13 05:36] LABS: Calcium 8.8 MG/DL (8.5-10.1); Osmolality,Calculated 292.4 MOS/KG (273-304); Potassium 3.7 MMOL/L (3.5-5.1)
[2020-10-13 05:38] LABS: Alanine Aminotransferase 21 U/L (16-61); Albumin 3.4 G/DL (3.4-5.0); Alkaline Phosphatase 55 U/L (45-117); Aspartate Amino Transferase 11 U/L (0-37); Band Neutrophils 1 % (0-10); Bilirubin,Total < 0.39 MG/DL (0.2-1.0); Blood Urea Nitrogen 50 MG/DL (7-18); Calcium 8.8 MG/DL (8.5-10.1); Carbon Dioxide 28 MMOL/L (21-32); Estimated Glom Filtration Rate 35 ML/MIN; Glucose 124 MG/DL (74-106); Hypochromasia 1+; Lymphocytes 10 % (20-55); Microcytosis 1+; Osmolality,Calculated 288.7 MOS/KG (273-304); Platelet Estimate Adequate; Potassium 3.7 MMOL/L (3.5-5.1); Segmented Neutrophils 81 % (50-85); Sodium 138 MMOL/L (136-145); Total Cells Counted 100; Total Protein 6.9 G/DL (6.4-8.2)
[2020-10-13] MEDS: BUDESONIDE 0.25 MG/2 ML NEB RESP TX SCH ×2 (06:50→20:35)
[2020-10-13] MEDS: DOCUSATE SODIUM 100 MG CAPSULE PO SCH ×2 (08:36→21:30)
[2020-10-13] MEDS: GLIMEPIRIDE 4 MG TABLET PO SCH ×2 (08:36→16:43)
[2020-10-13] MEDS: ESCITALOPRAM 10 MG TABLET PO SCH (08:36)
[2020-10-13] MEDS: INSULIN REGULAR 100 UNIT/ML SUBCUT SCH ×4 (08:36→21:28)
[2020-10-13] MEDS: FUROSEMIDE 40 MG/4 ML VIAL IV SCH ×2 (08:36→16:44)
[2020-10-13] MEDS: METOPROLOL TARTRATE 50 MG TABLET PO SCH ×2 (08:37→21:30)
[2020-10-13] MEDS: FERROUS SULFATE 325 MG TABLET PO SCH ×2 (08:37→21:29)
[2020-10-13] MEDS: PANTOPRAZOLE 40 MG TABLET PO SCH (08:37)
[2020-10-13] MEDS: gemfibroziL 600 MG TABLET PO SCH ×2 (08:37→21:31)
[2020-10-13] MEDS: POTASSIUM CHLORIDE 20 MEQ TABLET PO SCH (08:37)
[2020-10-13] MEDS: metFORMIN 500 MG TABLET PO SCH ×2 (08:37→16:43)
[2020-10-13] MEDS: ISOSORBIDE MONONITRATE 30 MG TABLET PO SCH (08:37)
[2020-10-13] MEDS: traMADol 50 MG TABLET PO PRN ×2 (14:30→22:31)
[2020-10-13] MEDS: AZITHROMYCIN INJ 500 MG in SODIUM CHLORIDE 0.9% 250 ML IV SCH (21:25)
[2020-10-13] MEDS: ASPIRIN EC 81 MG TABLET PO SCH (21:29)
[2020-10-13] MEDS: amLODIPine 10 MG TABLET PO SCH (21:30)
[2020-10-13] MEDS: ROSUVASTATIN 20 MG TABLET PO SCH (21:30)
[2020-10-13] MEDS ORDERED: ZALEPLON 5 MG CAPSULE PO PRN (22:21)
[2020-10-14] MEDS: ALBUTEROL 2.5 MG/3 ML NEB RESP TX SCH ×3 (00:33→07:12)
[2020-10-14] MEDS: methylPREDNISolone SOD SUC 40 MG/1 ML VIAL IV SCH (04:23)
[2020-10-14 05:18] LABS: Basophils % 0.4 % (0.0-0.8); Hematocrit 29.8 VOL% (42.0-52.0); Hemoglobin 9.2 GM/DL (14.0-18.0); Immature Granulocytes % 9.7 %; Immature Granulocytes Absolute 1.05 #; Lymphocytes # 0.9 10*3/uL (1.4-4.0); Mean Corpuscular HGB Conc 30.9 GM/DL (32-36); Mean Corpuscular Volume 84.2 FL (87-102); Mean Platelet Volume 10.6 FL (9.6-12.0); Monocytes % 9.1 % (1.7-12.7); Neutrophils % 72.8 % (38.7-73.9); Platelet Count 266 T/CUMM (130-400); Red Blood Count 3.54 MC/CUMM (3.8-5.5); Red Cell Distribution Width 14.5 % (9.3-17.3); White Blood Count 10.8 T/CUMM (4-12)
[2020-10-14 05:31] LABS: Calcium 8.8 MG/DL (8.5-10.1); Osmolality,Calculated 288.5 MOS/KG (273-304)
[2020-10-14 05:32] LABS: Calcium 8.8 MG/DL (8.5-10.1); Osmolality,Calculated 285.7 MOS/KG (273-304); Potassium 3.9 MMOL/L (3.5-5.1)
[2020-10-14 05:40] LABS: Band Neutrophils 1 % (0-10); Lymphocytes 8 % (20-55); Nucleated Red Blood Cells 1 (0-5); Platelet Estimate Adequate; Segmented Neutrophils 82 % (50-85); Total Cells Counted 100
[2020-10-14 05:41] LABS: Hypochromasia 1+; Microcytosis 1+
[2020-10-14] MEDS: BUDESONIDE 0.25 MG/2 ML NEB RESP TX SCH (07:12)
[2020-10-14] MEDS ORDERED: BUDESONIDE/FORMOTEROL 160-4.5 INHALER 6 GM INH SCH (09:00)
[2020-10-14] MEDS ORDERED: AZITHROMYCIN 250 MG TABLET PO SCH (09:00)
[2020-10-14] MEDS: gemfibroziL 600 MG TABLET PO SCH (09:33)
[2020-10-14] MEDS: ESCITALOPRAM 10 MG TABLET PO SCH (09:33)
[2020-10-14] MEDS: POTASSIUM CHLORIDE 20 MEQ TABLET PO SCH (09:34)
[2020-10-14] MEDS: GLIMEPIRIDE 4 MG TABLET PO SCH (09:34)
[2020-10-14] MEDS: METOPROLOL TARTRATE 50 MG TABLET PO SCH (09:34)
[2020-10-14] MEDS: ISOSORBIDE MONONITRATE 30 MG TABLET PO SCH (09:34)
[2020-10-14] MEDS: metFORMIN 500 MG TABLET PO SCH (09:34)
[2020-10-14] MEDS: PANTOPRAZOLE 40 MG TABLET PO SCH (09:34)
[2020-10-14] MEDS: DOCUSATE SODIUM 100 MG CAPSULE PO SCH (09:34)
[2020-10-14] MEDS: FERROUS SULFATE 325 MG TABLET PO SCH (09:34)
[2020-10-14] MEDS: FUROSEMIDE 40 MG/4 ML VIAL IV SCH (09:38)
[2020-10-14] MEDS: INSULIN REGULAR 100 UNIT/ML SUBCUT SCH ×2 (09:41→12:42)
[2020-10-14 11:43] VITALS: BP 121/70
== END 2020-10-14 12:24 | disposition home health service (06) | DRG 291 ==
LOC: N.EDINP 12:18 → N.ED 12:18 → N.TELEN 14:30
PROVIDERS: ADMIT Family Medicine; ATTEND Family Medicine